=== PATIENT | female | born 1970 | race Two or more races ===

== ENCOUNTER 2024-05-13 06:16 | Inpatient (IN) | payer MEDICAID, OTHER ==
[~2024-05-13] VITALS: Ht 149.9 cm; Wt 96.4 kg
[2024-05-13 07:08] LABS: Basophils # (auto) 0 10 ^3/uL (0-0.2); Basophils % (auto) 0.5 % (0.0-2.0); Eosinophils # (auto) 0.1 10 ^3/uL (0-0.8); Eosinophils % (auto) 2.1 % (0.0-7.0); Hematocrit 37.8 % (36.0-46.0); Hemoglobin 12.5 g/dL (12.2-16.2); Lymphocytes # (auto) 1.4 10 ^3/uL (0.4-5.4); Lymphocytes % (auto) 22.4 % (10.0-50.0); Mean Corpuscular Hemoglobin 27.9 pg (28.0-32.0); Mean Corpuscular Hgb Conc. 33.1 g/dL (32.0-36.0); Mean Corpuscular Volume 84.4 fL (80.0-100.0); Monocytes # (auto) 0.4 10 ^3/uL (0-1.3); Monocytes % (auto) 7.3 % (0.0-12.0); Neutrophils # (auto) 4.1 10 ^3/uL (1.6-8.6); Neutrophils % (auto) 67.7 % (37.0-80.0); Nucleated Red Blood Cells % 0.1 %; Platelet Count (auto) 264 10^3/uL (140-450); Red Blood Cells 4.48 10^6/uL (4.0-5.20); Red Cell Distribution Width 17.5 % (11.8-14.3)
[2024-05-13 07:16] LABS: Chloride 112 mmol/L (98-107); Potassium 4.1 mmol/L (3.5-5.1); Sodium 141 mmol/L (136-145)
[2024-05-13 07:17] LABS: Anion Gap 7 (5-15); Calcium 9.7 mg/dL (8.7-10.4); Carbon Dioxide 22 mmol/L (20-31)
[2024-05-13 07:22] LABS: BUN/Creatinine Ratio 19.1 (10.0-20.0); Blood Urea Nitrogen 13 mg/dL (9-23); Glucose 106 mg/dL (74-106)
[2024-05-13 07:41] VITALS: PULSE 87; RESP 19; O2SAT 97
[2024-05-13] MEDS: NITROGLYCERIN 0.4 MG SL TAB SL ONE (07:49)
[2024-05-13] MEDS: ASPirin 325 MG TAB PO ONE (07:49)
[2024-05-13 08:08] LABS: Urine Bacteria None Seen /hpf (None Seen)
[2024-05-13 08:22] LABS: Urine Blood TRACE /uL (Negative); Urine Clarity Clear (Clear); Urine Color Light-Yellow (Yellow); Urine Protein, UAD Negative (Negative); Urine Specific Gravity 1.018 (1.001-1.035); Urine Urobilinogen Normal (Negative); Urine WBC 1 /hpf (0 - 5); Urine pH 5.5 (5.0-9.0)
[2024-05-13] MEDS ORDERED: MORPHINE SULFATE INJ 2 MG/ml SYRG IV PRN (11:00)
[2024-05-13] MEDS ORDERED: NITROGLYCERIN 0.4 MG SL TAB SL PRN (11:00)
[2024-05-13] MEDS ORDERED: ONDANSETRON HCL 4 MG/2 ML VIAL IV PRN (11:00)
[2024-05-13] MEDS ORDERED: ACETAMINOPHEN 325 MG TAB PO PRN (11:00)
[2024-05-13 12:40] LABS: Rapid Influenza A Negative (Negative); Rapid Influenza B Negative (Negative)
[2024-05-13 12:41] LABS: COVID19 ANTIGEN SOFIA FIA NEGATIVE (NEGATIVE)
[2024-05-13] MEDS ORDERED: LISI20TA56 PO (13:11)
[2024-05-13] MEDS ORDERED: TAMS0.4C39 PO (13:11)
[2024-05-13 13:19] VITALS: BP 128/64; PULSE 70; RESP 18; TEMP 97.7; O2SAT 96
[2024-05-13 18:41] LABS: Magnesium 2.1 mg/dL (1.6-2.6)
[2024-05-13 18:43] LABS: Phosphorus 3.8 mg/dL (2.4-5.1)
[2024-05-13 19:27] VITALS: O2SAT 95
[2024-05-13 22:00] VITALS: BP 102/41; PULSE 66; RESP 19; TEMP 97.6; O2SAT 100
[2024-05-13 22:43] VITALS: PULSE 68; RESP 22; O2SAT 94
[2024-05-13] MEDS: ALBUTEROL SULF 2.5 MG/0.5ML(0.5%) NEB SOLN NEB PRN (22:43)
[2024-05-13] MEDS: IPRATROPIUM BROM 0.5 MG/2.5ML INH SOL NEB PRN (22:43)
[2024-05-13 22:51] VITALS: PULSE 69; RESP 24; O2SAT 98
[2024-05-13] MEDS ORDERED: IBUPROFEN 600 MG TAB PO ONE (23:45)
[2024-05-14] VITALS (9 sets, daily range): BP systolic 107–151; BP diastolic 39–76; PULSE 61–88; RESP 17–20; TEMP 97.7–98.1; O2SAT 95–100
[2024-05-14 07:50] LABS: Basophils # (auto) 0 10 ^3/uL (0-0.2); Basophils % (auto) 0.3 % (0.0-2.0); Eosinophils # (auto) 0.1 10 ^3/uL (0-0.8); Eosinophils % (auto) 1.8 % (0.0-7.0); Hematocrit 35.7 % (36.0-46.0); Hemoglobin 11.8 g/dL (12.2-16.2); Lymphocytes # (auto) 1.5 10 ^3/uL (0.4-5.4); Lymphocytes % (auto) 26.5 % (10.0-50.0); Mean Corpuscular Hemoglobin 27.9 pg (28.0-32.0); Mean Corpuscular Volume 84.4 fL (80.0-100.0); Monocytes # (auto) 0.5 10 ^3/uL (0-1.3); Monocytes % (auto) 9.8 % (0.0-12.0); Neutrophils # (auto) 3.4 10 ^3/uL (1.6-8.6); Neutrophils % (auto) 61.6 % (37.0-80.0); Platelet Count (auto) 276 10^3/uL (140-450); Red Blood Cells 4.22 10^6/uL (4.0-5.20); Red Cell Distribution Width 17.6 % (11.8-14.3); White Blood Cell 5.6 10^3/uL (4.4-10.8)
[2024-05-14 08:08] LABS: Chloride 111 mmol/L (98-107); Sodium 143 mmol/L (136-145)
[2024-05-14 08:09] LABS: Anion Gap 6 (5-15); Calcium 9.8 mg/dL (8.7-10.4); Carbon Dioxide 26 mmol/L (20-31)
[2024-05-14 08:14] LABS: BUN/Creatinine Ratio 15.6 (10.0-20.0); Blood Urea Nitrogen 12 mg/dL (9-23); Glucose 99 mg/dL (74-106)
[2024-05-14 08:19] LABS: INR 1.02 (0.9-1.15); Partial Thromboplastin Time 24.9 SEC (24.5-34.5); Prothrombin Time 10.8 sec (9.3-11.8)
[2024-05-14 09:17] LABS: Amphetamine Screen, Urine Neg (NEGATIVE); Barbiturate Scree,Urine Neg (NEGATIVE); Benzodiazephine Screen, Urine Neg (NEGATIVE)
[2024-05-14 09:18] LABS: Cannabinoid Screen, Urine Neg (NEGATIVE); Cocaine Screen, Urine Neg (NEGATIVE); Opiate Scree,Urine Neg (NEGATIVE); Phencyclidine Screen, Urine Neg (NEGATIVE)
[2024-05-14] MEDS: TAMSULOSIN HYDROCHLORIDE 0.4 MG CAP PO SCH (10:27)
[2024-05-14] MEDS: LISINOPRIL 20 MG TAB PO SCH (10:34)
[2024-05-14] MEDS: ASPirin 81 mg TAB PO SCH (10:35)
[2024-05-14] MEDS: PANTOPRAZOLE 40 MG TAB PO ONE (11:03)
[2024-05-14] MEDS ORDERED: IPRATROPIUM BROM 0.5 MG/2.5ML INH SOL NEB SCH (12:00)
[2024-05-14] MEDS ORDERED: IPRIH INH (18:26)
[2024-05-14] MEDS ORDERED: CYCL-839 PO (18:26)
[2024-05-14] MEDS: COLCHICINE 0.6 MG CAP PO ONE (18:30)
[2024-05-14] MEDS ORDERED: ATORVASTATIN 20 MG TAB PO SCH (22:00)
[2024-05-15] MEDS ORDERED: PANTOPRAZOLE 40 MG TAB PO SCH (06:00)
[2024-05-15] MEDS ORDERED: COLCHICINE 0.6 MG CAP PO SCH (10:00)
== END 2024-05-14 20:56 | disposition home or self-care (01) | DRG 243 ==
LOC: EDBD 06:16 → ER 06:16 → TELE 10:57 → EDBD 10:57 → TELE-WESTW 21:20
PROVIDERS: ADMIT Registered Nurse General Practice; ATTEND Student in an Organized Health Care Education/Training Program
DX: K21.9 Gastro-esophageal reflux disease without esophagitis (principal); J45.901 Unspecified asthma with (acute) exacerbation; E66.01 Morbid (severe) obesity due to excess calories; J44.9 Chronic obstructive pulmonary disease, unspecified; I10 Essential (primary) hypertension; N20.0 Calculus of kidney; F41.9 Anxiety disorder, unspecified; R73.03 Prediabetes; G89.29 Other chronic pain; Z20.822 Contact with and (suspected) exposure to COVID-19; E78.5 Hyperlipidemia, unspecified; K42.9 Umbilical hernia without obstruction or gangrene; G47.33 Obstructive sleep apnea (adult) (pediatric); Z88.0 Allergy status to penicillin; Z90.710 Acquired absence of both cervix and uterus; Z68.41 Body mass index [BMI] 40.0-44.9, adult
CPT/HCPCS: 36415; 71045; 80048; 80061; 80307; 81001; 82306; 82607; 83036; 83735; 83880; 84100; 84443; 84484; 85025; 85610; 85730; 87426; 87804; 93005; 93306; 94640; 99291; G0378

== ENCOUNTER 2024-06-05 12:49 | Inpatient (IN) | payer MEDICAID ==
[~2024-06-05] VITALS: Ht 149.9 cm; Wt 101.2 kg
[~2024-06-05 12:49] MED LIST: CYCL-839 PO; IPRIH INH; LISI20TA56 PO; TAMS0.4C39 PO
--- NOTE | 2024-06-05 13:01 | ED.PDOC ---
HPI Comments 53 year old female CODY presents to the ED with chief complaint of dizziness and syncope. Patient reports that [facility] had [facility], following up with Dr. Huynh's clinic today. Patient relays that in her chair, she began to experience dizziness with associated 7/10 lower abdominal pain, headache, and chest pain. Patient states when she had attempted to get the hotel front office manager's attention regarding her concern, she slid down the wall of the office onto the floor, having a syncopal episode. Patient notes she had a previous hysterectomy a few months ago. Patient denies any N/V/D, SOB, fever, or chills. Time Seen by MD: 12:55 Reviewed Notes: Nurses Notes, Medications, Allergies Allergies: Coded Allergies: Diphenhydramine (Verified Allergy, Unknown, 05/14/24) Penicillins (Verified Allergy, Unknown, 05/13/24) Home Meds Active Scripts Cyclobenzaprine Hcl (Cyclobenzaprine Hcl) 10 Mg Tab, 10 MG PO QPM for 7 Days, #7 TAB Prov:CHAPO MCMAHAN MD 05/14/24 Ipratropium [place] Hfa (Atrovent Hfa) 17 Mcg Aer, 2 PUFF INH QID PRN, #12.9 GRAMS 0 Refills Prov:CHAPO MCMAHAN MD 05/14/24 Reported Medications Tamsulosin Hcl (Tamsulosin Hcl) 0.4 Mg Cap, 0.4 MG PO DAILY 05/13/24 Lisinopril (Lisinopril) 20 Mg Tab, 20 MG PO DAILY 05/13/24 Information Source: Patient, Emergency Med Personnel Mode of Arrival: EMS Severity: Moderate Timing: Hours Duration: Since onset Prehospital treatment: None Location: Substernal Radiation: No Radiation Quality: Aching Onset: At Rest Cardiac Risk Factors: None PE Risk Factors: None History of: None Past Medical History PAST MEDICAL HISTORY: Asthma, COPD, HTN Surgical History: Hysterectomy EDI ANALYST History: No Pertinent EDI ANALYST History Family History Family History: Reviewed,noncontributory to illness Social History Smoker: Unknown Alcohol: Unknown Drugs: Unknown Lives In: Home Constitutional: reports: weakness; denies: chills, diaphoresis, fatigue, fever, malaise, sweats, others EENTM: denies: blurred vision, double vision, ear bleeding, ear discharge, ear drainage, ear pain, ear ringing, eye pain, eye redness, hearing loss, mouth pain, mouth swelling, nasal discharge, nose bleeding, nose congestion, nose pain, photophobia, tearing, throat pain, throat swelling, voice changes, others Respiratory: denies: cough, hemoptysis, orthopnea, SOB at rest, shortness of breath, SOB with excertion, stridor, wheezing, others Cardiovascular: reports: chest pain; denies: dizzy spells, diaphoresis, Dyspnea on exertion, edema, irregular heart beat, left arm pain, lightheadedness, palpitations, PND, syncope, others Gastrointestinal: denies: abdomen distended, abdominal pain, blood streaked bowels, constipated, diarrhea, dysphagia, difficulty swallowing, hematemesis, melena, nausea, poor appetite, poor fluid intake, rectal bleeding, rectal pain, vomiting, others Genitourinary: denies: abnormal vagina bleeding, burning, dyspareunia, dysuria, flank pain, frequency, hematuria, incontinence, pain, , vagina discharge, urgency, others Neurological: reports: dizziness, headache; denies: fainting, left sided numbness, left sided weakness, numbness, paresthesia, pre-existing deficit, right sided numbness, right sided weakness, seizure, speech problems, tingling, tremors, weakness, others Musculoskeletal: denies: back pain, gout, joint pain, joint swelling, muscle pain, muscle stiffness, neck pain, others Integumetry: denies: bruises, change in color, change in hair/nails, dryness, laceration, lesions, lumps, rash, wounds, others Allergic/Immunocompromised: denies: Difficulty Healing, Frequent Infections, Hives, Itching, others Hematologic/Lymphatic: denies: anemia, blood clots, easy bleeding, easy bruising, swollen glands, others Endocrine: denies: excessive hunger, excessive sweating, excessive thirst, excessive urination, flushing, intolerance to cold, intolerance to heat, unexplained weight gain, unexplained weight loss, others Psychiatric: denies: anxiety, bipolar disorder, depression, hopeless, panic disorder, schizophrenia, sleepless, suicidal, others All Other Systems: Reviewed and Negative Physical Exam General Appearance: Moderate Distress, Normal HEENT: Normal ENT Inspection, PERRL/EOMI Neck: Full Range of Motion, Non-Tender, Normal, Normal Inspection Respiratory: Chest Non-Tender, Lungs Clear, No Accessory Muscle Use, No Respiratory Distress, Normal Breath Sounds Cardiovascular: No Edema, No JVD, No Murmur, No Gallop, Normal Peripheral Pulses, Regular Rate/Rhythm Breast Exam: Deferred Gastrointestinal: No Organomegaly, Non Tender, No Pulsatile Mass, Normal Bowel Sounds, Soft Genitalia: Deferred Pelvic: Deferred Rectal: Deferred Extremities: No calf tenderness, Normal capillary refill, Normal inspection, Normal range of motion, Non-tender, No pedal edema Musculoskeletal : Apperance: Normal Neurologic: Alert, woodworking belt sander II-XII nml as Tested, No Motor Deficits, Normal Affect, Normal Mood, No Sensory Deficits Cerebellar Function: NOT DONE Reflexes: NOT DONE Skin: Dry, Normal Color, Warm Peripheral Pulses: 3+ Radial (R), 3+ Radial (L) Lymphatic: No Adenopathy Was a procedure done? Was a procedure done?: No CP Differential Dx Differential Diagnosis: A-fib, A-Flutter, Angina, Anxiety / Panic Attack, Atrial Dysrhythmia, Electrolyte Disorder X-Ray, Labs, Meds, VS Patient alert. Complaining of chest pain. Came from urgent care. Vitals stable. Answering all questions. Reviewed her previous visit. EKG reviewed does not show any acute changes. Was given aspirin. Was given nitro. Explained to the patient. Time of 1ST Reevaluation: 13:55 Reevaluation 1ST: Unchanged Patient Education/Counseling: Diagnosis, Treatment Family Education/Counseling: No Family Present Departure 1 Departure Time of Disposition: 13:08 Impression: Primary Impression: Chest pain of unknown etiology Disposition: ADMITTED INPATIENT Admit to: Med Surg Condition: Guarded Critical Care Note Critical Care Time?: Yes (45 min-critical care time only) Stability Stability form required: No Heart Score Heart Score: Heart Score Response (Comments) Value History Moderate Suspicious 1 EKG Normal 0 Age 45-64 1 Risk Factors 1 or 2 risk factors 1 Troponin Normal limit 0 Total 3 I personally scribed for ARTURO ROD MD ([email or web address]) on 06/05/24 at 13:01. Electronically submitted by Topher Marshall ([email or web address]). ARTURO ROD MD Jun 05, 2024 13:01
[2024-06-05] MEDS: ASPirin 325 MG TAB PO ONE (13:15)
[2024-06-05 14:15] LABS: Basophils # (auto) 0 10 ^3/uL (0-0.2); Basophils % (auto) 0.4 % (0.0-2.0); Eosinophils # (auto) 0.1 10 ^3/uL (0-0.8); Eosinophils % (auto) 1.5 % (0.0-7.0); Hematocrit 39.6 % (36.0-46.0); Hemoglobin 13.3 g/dL (12.2-16.2); Lymphocytes # (auto) 1.8 10 ^3/uL (0.4-5.4); Lymphocytes % (auto) 22.7 % (10.0-50.0); Mean Corpuscular Hemoglobin 28.9 pg (28.0-32.0); Mean Corpuscular Hgb Conc. 33.6 g/dL (32.0-36.0); Mean Corpuscular Volume 85.9 fL (80.0-100.0); Monocytes # (auto) 0.7 10 ^3/uL (0-1.3); Neutrophils # (auto) 5.5 10 ^3/uL (1.6-8.6); Neutrophils % (auto) 67.4 % (37.0-80.0); Platelet Count (auto) 296 10^3/uL (140-450); Red Blood Cells 4.61 10^6/uL (4.0-5.20); Red Cell Distribution Width 17.3 % (11.8-14.3); White Blood Cell 8.1 10^3/uL (4.4-10.8)
[2024-06-05 14:31] LABS: Chloride 109 mmol/L (98-107); Potassium 4.4 mmol/L (3.5-5.1); Sodium 143 mmol/L (136-145)
[2024-06-05 14:32] LABS: Anion Gap 7 (5-15); Calcium 10.6 mg/dL (8.7-10.4); Carbon Dioxide 27 mmol/L (20-31)
[2024-06-05 14:37] LABS: BUN/Creatinine Ratio 21.4 (10.0-20.0); Blood Urea Nitrogen 15 mg/dL (9-23); Glucose 97 mg/dL (74-106)
--- NOTE | 2024-06-05 18:49 | ECG ---
[facility] Test Date: 2024-06-05 Test Time: 13:04:31 Pat Name: MELISSA CHRISTIANSON Department: ER Room: 024[facility] Gender: F Manager Operational: ABDELRAHMAN : 1970 Requested By: ARTURO ROD Order Number: [id number] Reading MD: Vasyl Perez Measurements Intervals Gladys Rate: 58 P: 40 MD: 169 QRS: 65 QRSD: 86 T: 53 QT: 389 QTc: 383 Interpretive Statements Sinus rhythm Electronically Signed On 06-13-2024 13:05:38 PST by Vasyl Perez Please click the below link to view image of tracing.
[2024-06-05] MEDS ORDERED: NITROGLYCERIN 0.4 MG SL TAB SL PRN (21:00)
[2024-06-05] MEDS ORDERED: MORPHINE SULFATE INJ 2 MG/ml SYRG IV PRN (21:00)
[2024-06-05] MEDS ORDERED: ONDANSETRON HCL 4 MG/2 ML VIAL IV PRN (21:00)
[2024-06-05] MEDS: NITROGLYCERIN 0.4 MG SL TAB SL ONE (21:28)
--- NOTE | 2024-06-05 22:25 | DVHHPRES ---
History of Present Illness Resident Creating Document: STEPHANIE JANSEN RESIDENT History of Present Illness This is a 53-year-old female with past medical history of hypertension, hyperlipidemia, kidney stone, asthma, COPD presented to the ED with a chief complaint of dizziness and near syncopal event prior to this admission. A ccording to the patient she had recently been discharged from the [facility] for syncopal episodes. She went to her PCP today and when she was on her scooter she started feeling dizzy with lower abdominal pain which was colicky in nature, 7/10, localized and headache and chest pain. Also mentioned when she had attempted to get to the front attendant regarding her concern she slide down the wall of the office onto the floor but did not lose consciousness. She denies diaphoresis, nausea, vomiting, dysuria, sick contact, recent traveling, fever, chills or any change in bowel habit . Past Medical History Hypertension, hyperlipidemia, asthma, COPD Past Surgical History , hysterectomy and appendectomy Family History Family history is significant for heart disease and type 2 diabetes mellitus Past Social History Nonsmoker, nonalcoholic and never tried any drugs Review of Systems Constitutional: No: Fever, Chills, Sweats, Weakness, Malaise, Other Eyes: No: Pain, Vision change, Conjunctivae inflammation, Eyelid inflammation, Other, Redness ENT: No: Ear pain, Ear discharge, Nose pain, Nose discharge, Nose congestion, Mouth pain, Mouth swelling, Throat pain, Throat swelling, Other Respiratory: No: Cough, Dry, Shortness of breath, SOB with excertion, Wheezing, Hemoptysis, Pleuritic Pain, Sputum, Wheezing, Other Cardiovascular: Chest Pain, Lt Headedness Gastrointestinal: Abdominal Pain; No: Nausea, Vomiting, Diarrhea, Constipation, Melena, Hematochezia, Other Genitourinary: No Dysuria, No Frequency, No Incontinence, No Hematuria, No Retention, No Other Musculoskeletal: No: other, neck pain, shoulder pain, arm pain, back pain, hand pain, leg pain, foot pain Skin: No: Rash, Lesions, Jaundice, Bruising, Other Neurological: No: Weakness, Numbness, Incoordination, Change in speech, Confusion, Seizures, Other Allergies: Coded Allergies: Diphenhydramine (Verified Allergy, Unknown, 05/14/24) Penicillins (Verified Allergy, Unknown, 05/13/24) Medications Current Medications Medications Dose Ordered Sig/Neda Route Start Time Stop Time Status Last Admin Dose Admin Sodium Chloride 10 ml Q8HR IV 06/05/24 22:00 Acetaminophen/ Hydrocodone Bitart 1 tab Q4HP PRN PO 06/05/24 21:00 Ondansetron HCl 4 mg Q4HP PRN IV 06/05/24 21:00 Nitroglycerin 0.4 mg Q5MINP PRN SL 06/05/24 21:00 Morphine Sulfate 2 mg Q30M PRN IV 06/05/24 21:00 Sodium Chloride 1,000 ml @ 75 mls/hr [id number] IV 06/05/24 22:15 Exam Vital Signs Vital Signs Date Time Temp Pulse Resp B/P (MAP) Pulse Ox O2 Delivery O2 Flow Rate FiO2 06/05/24 21:01 98.7 82 18 120/70 (87) 98 98.7 Exam Physical examination: General Appearance: Alert, Oriented X3, Cooperative, No acute distress HEENT: Atraumatic, PERRLA, EOMI, Mucous membrane moist/pink Respiratory: Clear to auscultation, Normal air movement Cardiovascular: Regular rate, Normal S1, Normal S2, No murmurs, no chest wall tenderness Abdominal: Normal bowel sounds, Soft, mild tenderness in the lower abdomen, No hepatospenomegaly, No masses Extremities: No clubbing, No cyanosis, No edema, Normal pulses, No tenderness/swelling Skin: No rashes, No breakdown, No significant lesion Neuro: Normal gait, Normal speech, Strength at 5/5 X4 ext, Normal tone, Sensation intact, grossly intact cranial nerves Psych/Mental Status: Mental status NL, Mood NL Labs/Xrays Labs Test 06/05/24 14:01 Range/Units White Blood Count 8.1 4.4-10.8 10^3/uL Red Blood Count 4.61 4.0-5.20 10^6/uL Hemoglobin 13.3 12.2-16.2 g/dL Hematocrit 39.6 36.0-46.0 % Mean Corpuscular Volume 85.9 80.0-100.0 fL Mean Corpuscular Hemoglobin 28.9 28.0-32.0 pg Mean Corpuscular Hemoglobin Concent 33.6 32.0-36.0 g/dL Red Cell Distribution Width 17.3 H 11.8-14.3 % Platelet Count 296 140-450 10^3/uL Mean Platelet Volume 7.5 6.9-10.8 fL Neutrophils (%) (Auto) 67.4 37.0-80.0 % Lymphocytes (%) (Auto) 22.7 10.0-50.0 % Monocytes (%) (Auto) 8.0 0.0-12.0 % Eosinophils (%) (Auto) 1.5 0.0-7.0 % Basophils (%) (Auto) 0.4 0.0-2.0 % Neutrophils # (Auto) 5.5 1.6-8.6 10 ^3/uL Lymphocytes # (Auto) 1.8 0.4-5.4 10 ^3/uL Monocytes # (Auto) 0.7 0-1.3 10 ^3/uL Eosinophils # (Auto) 0.1 0-0.8 10 ^3/uL Basophils # (Auto) 0 0-0.2 10 ^3/uL Nucleated Red Blood Cells 0.0 % Sodium Level 143 136-145 mmol/L Potassium Level 4.4 3.5-5.1 mmol/L Chloride Level 109 H 98-107 mmol/L Carbon Dioxide Level 27 20-31 mmol/L Anion Gap 7 5-15 Blood Urea Nitrogen 15 9-23 mg/dL Creatinine 0.70 0.550-1.02 mg/dL Glomerular Filtration Rate Calc 105 >90 mL/min BUN/Creatinine Ratio 21.4 H 10.0-20.0 Serum Glucose 97 74-106 mg/dL Calcium Level 10.6 H 8.7-10.4 mg/dL Troponin I High Sensitivity < 3 L </=34 ng/L Assessment/Plan Assessment/Plan Assessment and plan: # Dizziness likely secondary to dehydration - Initial EKG and troponins are unremarkable - Ordered orthostatic vital - IV normal saline at 75 mL/hour - Encourage oral fluid intake - Echo on 05/14/24 revealed EF 55% with grade 1 diastolic dysfunction # Hypercalcemia likely due to dehydration - IV normal saline at 75 mL/hour Goal of care discussed with the patient for more than 17 minutes full code Plan of treatment discussed with Dr. Gonzalez Plan discussed with: Patient, Other My Orders Orders - STEPHANIE JANSEN RESIDENT Procedure Category Date Status Time Admit ADMIT 11/13/24 Transmitted 20:51 Code Status CODE 06/05/24 Transmitted 20:51 2 Gm Sodium Diet DIET 06/06/24 Transmitted Breakfast Sodium Chloride Lock PHA 06/05/24 In Process (Saline Lock Ns) 22:00 Hydrocodone-Acet PHA 06/05/24 In Process 5/325mg Tab ([place] 21:00 Ondansetron Hcl PHA 06/05/24 In Process (Zofran) 21:00 Complete Blood Count LAB 06/06/24 Verified 04:00 Comprehensive LAB 06/06/24 Verified Metabolic Panel 04:00 Nitroglycerin PHA 06/05/24 In Process Sublingual (Ntrostat 21:00 Morphine Sulfate PHA 06/05/24 In Process Injection 21:00 Oxygen By Nasal RT 06/05/24 Transmitted Cannula 20:51 Stat Ekg For Chest MAX 06/05/24 In Process Pain 20:51 Notify Of Changes MAX 06/05/24 In Process From Base 20:51 Baseball Winder For [facility] 06/05/24 In Process 24 Hours 20:51 Emergency Dysrhythmia [facility] 06/05/24 In Process Protocol 20:51 Rhythm Strips Once [facility] 06/05/24 In Process Every Shift 20:51 Chest Portable XY 06/05/24 Taken 22:03 Orthostatic Vital ORDERS 06/05/24 Transmitted Signs 22:03 Sodium Chloride 0.9% PHA 06/05/24 In Process 22:15 B-Type Natriuretic LAB 06/05/24 In Process Peptide 22:03 Urinalysis LAB 06/05/24 Uncollected 22:03 Date of Service: Jun 05, 2024 Billing Provider: PATRICIA GONZALEZ MD Common Visit Codes: [id number] INP/OBS CARE (HIGH) STEPHANIE JANSEN RESIDENT Jun 05, 2024 22:25 PATRICIA GONZALEZ MD Jun 06, 2024 13:41
--- NOTE | 2024-06-05 22:34 | DVH ---
CHEST RADIOGRAPH Indication:Chest pain Technique: Single frontal view of the chest was obtained Comparison: XY CHEST PORTABLE on DOS: 05/13/24 FINDINGS: Lines and Tubes: None Lungs: No focal consolidation. Pleura: No effusion. No pneumothorax. Cardiomediastinal contours: Unremarkable Bones: No acute osseous abnormality. IMPRESSION: 1. No active disease
[2024-06-06] MEDS: SODIUM CHLORIDE 0.9% 1,000 ML IV SCH (00:27)
[2024-06-06] MEDS: SODIUM CHLOR 0.9% PF (SALINE LOCK) 10ML VIAL/SYR IV SCH (00:27)
[2024-06-06 00:28] VITALS: PULSE 78; RESP 16; O2SAT 98
[2024-06-06 05:56] LABS: Basophils # (auto) 0 10 ^3/uL (0-0.2); Basophils % (auto) 0.5 % (0.0-2.0); Eosinophils # (auto) 0.1 10 ^3/uL (0-0.8); Eosinophils % (auto) 1.9 % (0.0-7.0); Hematocrit 41.4 % (36.0-46.0); Hemoglobin 13.5 g/dL (12.2-16.2); Mean Corpuscular Hgb Conc. 32.5 g/dL (32.0-36.0); Monocytes # (auto) 0.6 10 ^3/uL (0-1.3); Monocytes % (auto) 8.1 % (0.0-12.0); Neutrophils # (auto) 4.6 10 ^3/uL (1.6-8.6); Neutrophils % (auto) 62.5 % (37.0-80.0); Nucleated Red Blood Cells % 0.2 %; Platelet Count (auto) 313 10^3/uL (140-450); Red Blood Cells 4.81 10^6/uL (4.0-5.20); Red Cell Distribution Width 17.3 % (11.8-14.3); White Blood Cell 7.3 10^3/uL (4.4-10.8)
[2024-06-06 06:09] LABS: Alanine Aminotransferase 12 U/L (7-40); Alkaline Phosphatase 110 U/L (46-116); Anion Gap 11 (5-15); BUN/Creatinine Ratio 16.7 (10.0-20.0); Blood Urea Nitrogen 12 mg/dL (9-23); Calcium 10.6 mg/dL (8.7-10.4); Carbon Dioxide 23 mmol/L (20-31); Chloride 108 mmol/L (98-107); Glucose 103 mg/dL (74-106); Potassium 3.9 mmol/L (3.5-5.1); Sodium 142 mmol/L (136-145)
[2024-06-06 06:10] LABS: Albumin 4.6 g/dL (3.2-4.8); Aspartate Aminotransferase 11 U/L (13-40); Bilirubin, Total 0.5 mg/dL (0.2-1.0); Total Protein 7.8 g/dL (5.7-8.2)
[2024-06-06 06:58] LABS: Urine Bacteria None Seen /hpf (None Seen)
[2024-06-06 07:00] VITALS: RESP 16; O2SAT 98
[2024-06-06] MEDS: HYDROcodone-ACET 5/325MG TAB PO PRN (07:05)
[2024-06-06 07:35] LABS: Urine Blood Negative /uL (Negative); Urine Clarity Clear (Clear); Urine Color Light-Yellow (Yellow); Urine Mucus FEW (None Seen); Urine Protein, UAD Negative (Negative); Urine Specific Gravity 1.019 (1.001-1.035); Urine Urobilinogen Normal (Negative); Urine WBC 4 /hpf (0 - 5)
[2024-06-06 08:00] VITALS: RESP 16; O2SAT 98
[2024-06-06 22:13] VITALS: BP 112/57; PULSE 77; RESP 18; TEMP 97.6; O2SAT 95
[2024-06-07] VITALS (16 sets, daily range): BP systolic 113–142; BP diastolic 50–83; PULSE 58–85; RESP 16–20; TEMP 96.8–98.7; O2SAT 91–100
[2024-06-07] MEDS: ALBUTEROL SULF 2.5 MG/0.5ML(0.5%) NEB SOLN NEB PRN (12:11)
[2024-06-07] MEDS: IPRATROPIUM BROM 0.5 MG/2.5ML INH SOL NEB PRN (12:12)
--- NOTE | 2024-06-07 12:52 | BSKYNEURO ---
[facility] Note # Demographics Consult Type: General Neurology Patient Location: Inpatient First Name: Moira Last Name: Zuñiga Date of : 1970 Age: 53 Gender: Female Facility: [facility] Time of Initial Page (): 06/07/2024, 12:36 Time of Return Call (): 06/07/2024, 12:36 # HPI Chief Complaint: - dizziness History: 53F with history of syncope/presyncope, HTN, GERD presents with dizziness and concern for recurrent UTI. Orthostatic vital signs unremarkable. Dizziness has not completed resolved, worse with movement. Dizziness has been a problem since a traumatic brain injury several years ago. # Scores Time of exam and NIHSS (): 06/07/2024, 12:45 Level of Consciousness 1a: [0] = Alert; keenly responsive LOC Questions 1b: [0] = Answers both questions correctly LOC Commands 1c: [0] = Performs both tasks correctly Best Gaze 2: [0] = Normal Visual 3: [0] = No visual loss Facial Palsy 4: [0] = Normal symmetrical movements Motor Arm Left 5a: [0] = No drift Motor Arm Right 5b: [0] = No drift Motor Leg Left 6a: [0] = No drift Motor Leg Right 6b: [0] = No drift Limb Ataxia 7: [0] = Absent Sensory 8: [0] = Normal Best Language 9: [0] = No aphasia Dysarthria 10: [0] = Normal Extinction and Inattention 11: [0] = No abnormality NIHSS Total: 0 # Assessment Impression: 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 Possible acute exacerbation in setting of UTI # Plan Thrombolytic/Intervention: NOT IV Thrombolysis or IA Intervention candidate Thrombolytic/Intraarterial Exclusion: - IV thrombolytic and IA intervention considered but not recommended as this patient's symptoms are not clinically consistent with an assumed diagnosis of stroke Therapy/Evaluation: - PT/OT evaluation Other: - If patient has any neurological deterioration please call me back immediately - neurology referral as outpatient Additional Recommendations: If walking at her baseline, OK for discharge from neurology perspective Disposition: observation # Logistics Attestation of consult completion: The patient is located at: [facility]. Facility staff participated in the visit. I performed this telemedicine visit from my offsite office utilizing interactive 2 way audio and visual telecommunication technology. Consent: Verbal consent was obtained from the patient and/or family for this encounter. Total time spent in telemedicine encounter: I spent 10 minutes reviewing clinical data and/or imaging, obtaining history, examining the patient, communicating with the onsite care team, and in preparation of this report. Electronically signed at 06/07/2024 12:52 ([place] Time) by Braeden Xiong MD Yes BRAEDEN XIONG MD Jun 07, 2024 12:52
[2024-06-07 13:11] LABS: Urine Bacteria None Seen /hpf (None Seen)
[2024-06-07 13:36] LABS: Urine Blood Negative /uL (Negative); Urine Clarity Clear (Clear); Urine Color Light-Yellow (Yellow); Urine Protein, UAD Negative (Negative); Urine Specific Gravity 1.013 (1.001-1.035); Urine Urobilinogen Normal (Negative); Urine WBC 1 /hpf (0 - 5)
--- NOTE | 2024-06-07 15:21 | DVHPN2 ---
Reviewed: Care Plan, H&P, Labs, Medications, Previous Orders Changes from previous H/P or p: No Changes General: Per HPI Eyes: No Pain, No Vision change, No Conjunctivae inflammation, No Eyelid inflammation, No Other, No Redness ENT: No Ear pain, No Ear discharge, No Nose pain, No Nose discharge, No Nose congestion, No Mouth pain, No Mouth swelling, No Throat pain, No Throat swelling, No Other Cardiovascular: Chest Pain, Lt Headedness Respiratory: No Cough, No Dry, No Shortness of breath, No SOB with excertion, No Wheezing, No Hemoptysis, No Pleuritic Pain, No Sputum, No Other Gastrointestinal: No Nausea, No Vomiting; Abdominal Pain; No Diarrhea, No Constipation, No Melena, No Hematochezia, No Other Genitourinary: No Dysuria, No Frequency, No Incontinence, No Hematuria, No Retention, No Other Musculoskeletal: No other, No neck pain, No shoulder pain, No arm pain, No back pain, No hand pain, No leg pain, No foot pain Skin: No Rash, No Lesions, No Jaundice, No Bruising, No Other Objective Vitals Vital Signs Date Time Temp Pulse Resp B/P (MAP) Pulse Ox O2 Delivery O2 Flow Rate FiO2 06/07/24 13:31 85 20 91 0.0 06/07/24 12:30 98.1 114/66 (82) 98.1 06/07/24 12:12 Room Air 06/07/24 12:12 21 Intake/Output Intake and Output 06/07/24 07:00 Intake Total 800 ml Balance 800 ml Intake Oral 200 ml IV Total 600 ml # Voids 1 General Appearance: Alert, Oriented X3 Cardiovascular: Regular rate, Normal S1, Normal S2 Abdomen: Normal bowel sounds Medications Current Medications Medications Dose Ordered Sig/Neda Route Start Time Stop Time Status Last Admin Dose Admin Sodium Chloride 10 ml Q8HR IV 06/05/24 22:00 06/07/24 14:19 10 ML Acetaminophen/ Hydrocodone Bitart 1 tab Q4HP PRN PO 06/05/24 21:00 06/07/24 11:03 1 TAB Ondansetron HCl 4 mg Q4HP PRN IV 06/05/24 21:00 Nitroglycerin 0.4 mg Q5MINP PRN SL 06/05/24 21:00 Morphine Sulfate 2 mg Q30M PRN IV 06/05/24 21:00 Sodium Chloride 1,000 ml @ 75 mls/hr [id number] IV 06/05/24 22:15 06/07/24 14:19 75 MLS/HR Ipratropium [place] 0.5 mg Q4HP PRN NEB 06/07/24 11:45 06/07/24 12:12 0.5 MG Albuterol 2.5 mg Q4HPRN PRN NEB 06/07/24 11:45 06/07/24 12:11 2.5 MG Laboratory Results Laboratory Tests 06/06/24 05:25 Urinalysis Test 06/06/24 06:57 06/07/24 12:45 Urine Mucus Few (None Seen) Urine Color Light-yellow (Yellow) Urine Clarity Clear (Clear) Urine pH 5.0 (5.0-9.0) Urine Specific [place] 1.013 (1.001-1.035) Urine Protein Negative (Negative) Urine Ketones Negative (Negative) Urine Blood Negative /uL (Negative) Urine Nitrite Negative (Negative) Urine Bilirubin Negative (Negative) Urine Urobilinogen Normal mg/dL (Negative) Urine Leukocyte Esterase Negative /uL (Negative) Urine RBC <1 /hpf (0 - 4) Urine WBC 1 /hpf (0 - 5) Urine Squamous Epithelial Cells Few /hpf (<5) Urine Bacteria None seen /hpf (None Seen) Urine Glucose Normal mg/dL (Normal) Labs and/or images reviewed: Labs reviewed by me, Image(s) reviewed by me Assessment/Plan Assessment/Plan This is a 53-year-old female with past medical history of hypertension, hyperlipidemia, kidney stone, asthma, COPD presented to the ED with a chief complaint of dizziness and near syncopal event prior to this admission. According to the patient she had recently been discharged from the [facility] for syncopal episodes. She went to her PCP today and when she was on her scooter she started feeling dizzy with lower abdominal pain which was colicky in nature, 7/10, localized and headache and chest pain. Also mentioned when she had attempted to get to the front maker lockstitch regarding her concern she slide down the wall of the office onto the floor but did not lose consciousness. She denies diaphoresis, nausea, vomiting, dysuria, sick contact, recent traveling, fever, chills or any change in bowel habit . # Dizziness likely secondary to dehydration - Initial EKG and troponins are unremarkable - Ordered orthostatic vital - IV normal saline at 75 mL/hour - Encourage oral fluid intake - Echo on 05/14/24 revealed EF 55% with grade 1 diastolic dysfunction # Hypercalcemia likely due to dehydration - IV normal saline at 75 mL/hour continue with hydration cardiology to complete full evaluation prior to discharge Plan discussed with: Patient My Orders Orders - HARISH KING DO Procedure Category Date Status Time * Neurology Consult CONS 06/06/24 Transmitted 16:12 Ipratropium [place] PHA 06/07/24 In Process (Atrovent Medneb) 11:45 Albuterol Med[place] PHA 06/07/24 In Process (Ventolin Medneb) 11:45 Date of Service: Jun 07, 2024 Billing Provider: HARISH IKNG DO Common Visit Codes: [id number] INP/OBS CARE(HIGH) HARISH KING DO Jun 07, 2024 15:21
--- NOTE | 2024-06-07 17:17 | DVH ---
PROCEDURE: MRI BRAIN HEAD WO CONTRAST INDICATION: 53 years old, Female; dizziness. EXAM DATE: 06/07/2024 03:57 PM COMPARISON: None TECHNIQUE: MRI of the brain without intravenous contrast. FINDINGS: Diffusion weighted images of the brain demonstrate no evidence of acute infarction. There is no evidence of acute intracranial hemorrhage, extra-axial collection, mass effect, midline s hift, herniation or hydrocephalus. The ventricles, sulci and cisterns appear age appropriate. The signal intensities of the brain parenchyma are within normal limits. There are no signal abnormalities on the susceptibility weighted sequences. The major vascular flow voids are present. The visualized paranasal sinuses and mastoid air cells are clear. The surrounding soft tissues and o sseous structures are unremarkable. IMPRESSION: 1. Limited by motion. FLAIR images were not submitted. No acute intracranial abnormality. HS:Y
[2024-06-08] VITALS (9 sets, daily range): BP systolic 122–141; BP diastolic 44–64; PULSE 56–87; RESP 17–20; TEMP 96.7–98.1; O2SAT 93–100
--- NOTE | 2024-06-08 15:48 | DVHDS2 ---
Discharge Summary Date of Admission Jun 05, 2024 at 20:51 Date of Discharge: Jun 08, 2024 Labs/Diagnostic Data: Laboratory Results Test 06/07/24 12:45 06/06/24 06:57 06/06/24 05:25 06/05/24 14:01 Urine Color Light-yellow (Yellow) Urine Clarity Clear (Clear) Urine pH 5.0 (5.0-9.0) Urine Specific [place] 1.013 (1.001-1.035) Urine Protein Negative (Negative) Urine Ketones Negative (Negative) Urine Blood Negative /uL (Negative) Urine Nitrite Negative (Negative) Urine Bilirubin Negative (Negative) Urine Urobilinogen Normal mg/dL (Negative) Urine Leukocyte Esterase Negative /uL (Negative) Urine RBC <1 /hpf (0 - 4) Urine WBC 1 /hpf (0 - 5) Urine Squamous Epithelial Cells Few /hpf (<5) Urine Bacteria None seen /hpf (None Seen) Urine Glucose Normal mg/dL (Normal) Urine Mucus Few (None Seen) White Blood Count 7.3 10^3/uL (4.4-10.8) Red Blood Count 4.81 10^6/uL (4.0-5.20) Hemoglobin 13.5 g/dL (12.2-16.2) Hematocrit 41.4 % (36.0-46.0) Mean Corpuscular Volume 86.0 fL (80.0-100.0) Mean Corpuscular Hemoglobin 28.0 pg (28.0-32.0) Mean Corpuscular Hemoglobin Concent 32.5 g/dL (32.0-36.0) Red Cell Distribution Width 17.3 % (11.8-14.3) Platelet Count 313 10^3/uL (140-450) Mean Platelet Volume 7.7 fL (6.9-10.8) Neutrophils (%) (Auto) 62.5 % (37.0-80.0) Lymphocytes (%) (Auto) 27.0 % (10.0-50.0) Monocytes (%) (Auto) 8.1 % (0.0-12.0) Eosinophils (%) (Auto) 1.9 % (0.0-7.0) Basophils (%) (Auto) 0.5 % (0.0-2.0) Neutrophils # (Auto) 4.6 10 ^3/uL (1.6-8.6) Lymphocytes # (Auto) 2.0 10 ^3/uL (0.4-5.4) Monocytes # (Auto) 0.6 10 ^3/uL (0-1.3) Eosinophils # (Auto) 0.1 10 ^3/uL (0-0.8) Basophils # (Auto) 0 10 ^3/uL (0-0.2) Nucleated Red Blood Cells 0.2 % Sodium Level 142 mmol/L (136-145) Potassium Level 3.9 mmol/L (3.5-5.1) Chloride Level 108 mmol/L (98-107) Carbon Dioxide Level 23 mmol/L (20-31) Anion Gap 11 (5-15) Blood Urea Nitrogen 12 mg/dL (9-23) Creatinine 0.72 mg/dL (0.550-1.02) Glomerular Filtration Rate Calc 101 mL/min (>90) BUN/Creatinine Ratio 16.7 (10.0-20.0) Serum Glucose 103 mg/dL (74-106) Calcium Level 10.6 mg/dL (8.7-10.4) Total Bilirubin 0.5 mg/dL (0.2-1.0) Aspartate Amino Transferase (AST) 11 U/L (13-40) Alanine Aminotransferase (ALT) 12 U/L (7-40) Alkaline Phosphatase 110 U/L (46-116) Total Protein 7.8 g/dL (5.7-8.2) Albumin 4.6 g/dL (3.2-4.8) Troponin I High Sensitivity < 3 ng/L (</=34) B-Type Natriuretic Peptide 22.00 pg/mL (0-100) Other Laboratory Tests 06/06/24 05:25 Brief Hx & Hospital Course: This is a 53-year-old female with past medical history of hypertension, hyperlipidemia, kidney stone, asthma, COPD presented to the ED with a chief complaint of dizziness and near syncopal event prior to this admission. According to the patient she had recently been discharged from the [facility] for syncopal episodes. She went to her PCP today and when she was on her scooter she started feeling dizzy with lower abdominal pain which was colicky in nature, 7/10, localized and headache and chest pain. Also mentioned when she had attempted to get to the front counter clerk regarding her concern she slide down the wall of the office onto the floor but did not lose consciousness. She denies diaphoresis, nausea, vomiting, dysuria, sick contact, recent traveling, fever, chills or any change in bowel habit . # Dizziness likely secondary to dehydration - Initial EKG and troponins are unremarkable - Ordered orthostatic vital - IV normal saline at 75 mL/hour - Encourage oral fluid intake - Echo on 05/14/24 revealed EF 55% with grade 1 diastolic dysfunction # Hypercalcemia likely due to dehydration - IV normal saline at 75 mL/hour continue with hydration cardiology to complete full evaluation prior to discharge Condition at Discharge: Stable Final Diagnosis/Problems List see above Discharge Disposition: Home Discharge Instruct/Medications Diet: Cardiac 2g Na,low cholest Activity: No Restrictions, As Tolerated Discharge Statement: "Patient was advised to return to the ER or call 911 if any headaches, dizziness, shortness of breath, chest pain, abdominal pain, bleeding, fevers, or worsening of medical condition. Patient was counseled about treatment plan, medications, possible side effects, patientverbalized understanding. All questions were answered to the best of my ability. This discharge took greater then 30 minutes in planning, reviewing documentation, counseling the patient, and discussing with other team members." ASSESSMENT ASSESSMENT Assessment Date of Service: Jun 08, 2024 Billing Provider: HARISH KING DO Common Visit Codes: 74009-VND/OBS DISCH DAY >30min HARISH KING DO Jun 08, 2024 15:48
== END 2024-06-08 19:57 | disposition home or self-care (01) | DRG 422 ==
LOC: EDUNIT# 12:49 → EDBD 12:49 → ER 12:49 → OVERFLOW 20:51 → EAST 06-06 23:33
PROVIDERS: ATTEND Internal Medicine
DX: E86.0 Dehydration (principal); E78.5 Hyperlipidemia, unspecified; R42 Dizziness and giddiness; E83.52 Hypercalcemia; R07.9 Chest pain, unspecified; I10 Essential (primary) hypertension; Z88.0 Allergy status to penicillin; Z87.442 Personal history of urinary calculi; Z82.49 Family history of ischemic heart disease and other diseases of the circulatory system; Z83.3 Family history of diabetes mellitus; Z90.710 Acquired absence of both cervix and uterus; Z90.49 Acquired absence of other specified parts of digestive tract; J44.9 Chronic obstructive pulmonary disease, unspecified
CPT/HCPCS: 36415; 70551; 71045; 80048; 80053; 81001; 83880; 84484; 85025; 93005; 94640; 99291; G0378

== ENCOUNTER 2024-06-15 00:24 | Emergency (ER) | payer MEDICAID ==
[~2024-06-15] VITALS: Ht 165.1 cm; Wt 81.8 kg
[~2024-06-15 00:24] MED LIST changes: -TAMS0.4C39 PO
--- NOTE | 2024-06-15 00:40 | ED.PDOC ---
SOB-HPI HPI Comments 53 Year old female who came to ER via EMS for shortness of breath. Patient does have history of hypertension and asthma. Patient states she has chronic asthmatic attacks, has been having productive cough with grayish sputum and shortness of breath earlier which progressively worsened so she decided to call paramedics. Patient was wheezing on scene, was given a dose of DuoNeb. Patient is saturating 100% on room air. Chief Complaint: Shortness of breath Time Seen by MD: 00:39 Reviewed notes: Nurses Notes, Second Cook And Baker Notes Information Source: Patient Mode of Arrival: EMS Severity: Moderate Timing: Hours Duration: Since onset Context: At Rest, With Light Exertion PE Risk Factors: None History of: Asthma Prehospital treatment: Breathing Tx, Oxygen Associated Signs and Symptoms: Wheeze, Cough If cough with SOB: Productive Past Medical History PAST MEDICAL HISTORY: Asthma, COPD, HTN Surgical History: Hysterectomy STRAPPER AND BUFFER History: No Pertinent STRAPPER AND BUFFER History Family History Family History: Reviewed,noncontributory to illness Social History Smoker: Non-Smoker Alcohol: Denies ETOH Use Drugs: Denies Drug Use Lives In: Home Constitutional: denies: chills, diaphoresis, fatigue, fever, malaise, sweats, weakness, others EENTM: denies: blurred vision, double vision, ear bleeding, ear discharge, ear drainage, ear pain, ear ringing, eye pain, eye redness, hearing loss, mouth pain, mouth swelling, nasal discharge, nose bleeding, nose congestion, nose pain, photophobia, tearing, throat pain, throat swelling, voice changes, others Respiratory: reports: cough, SOB at rest, shortness of breath, wheezing; denies: hemoptysis, orthopnea, SOB with excertion, stridor, others Cardiovascular: denies: chest pain, dizzy spells, diaphoresis, Dyspnea on exertion, edema, irregular heart beat, left arm pain, lightheadedness, palpitations, PND, syncope, others Gastrointestinal: denies: abdomen distended, abdominal pain, blood streaked bowels, constipated, diarrhea, dysphagia, difficulty swallowing, hematemesis, melena, nausea, poor appetite, poor fluid intake, rectal bleeding, rectal pain, vomiting, others Genitourinary: denies: abnormal vagina bleeding, burning, dyspareunia, dysuria, flank pain, frequency, hematuria, incontinence, pain, , vagina discharge, urgency, others Neurological: denies: dizziness, fainting, headache, left sided numbness, left sided weakness, numbness, paresthesia, pre-existing deficit, right sided numbness, right sided weakness, seizure, speech problems, tingling, tremors, weakness, others Musculoskeletal: denies: back pain, gout, joint pain, joint swelling, muscle pain, muscle stiffness, neck pain, others Integumetry: denies: bruises, change in color, change in hair/nails, dryness, laceration, lesions, lumps, rash, wounds, others Allergic/Immunocompromised: denies: Difficulty Healing, Frequent Infections, Hives, Itching, others Hematologic/Lymphatic: denies: anemia, blood clots, easy bleeding, easy bruising, swollen glands, others Endocrine: denies: excessive hunger, excessive sweating, excessive thirst, excessive urination, flushing, intolerance to cold, intolerance to heat, unexplained weight gain, unexplained weight loss, others Psychiatric: denies: anxiety, bipolar disorder, depression, hopeless, panic disorder, schizophrenia, sleepless, suicidal, others Physical Exam General Appearance: No Apparent Distress, Normal HEENT: Normal ENT Inspection, Pharynx Normal, TMs Normal Neck: Full Range of Motion, Non-Tender, Normal, Normal Inspection Respiratory: Chest Non-Tender, Lungs Clear, No Accessory Muscle Use, No Respiratory Distress, Normal Breath Sounds Cardiovascular: No Edema, No JVD, No Murmur, No Gallop, Normal Peripheral Pulses, Regular Rate/Rhythm Breast Exam: Deferred Gastrointestinal: No Organomegaly, Non Tender, No Pulsatile Mass, Normal Bowel Sounds, Soft Genitalia: Deferred Pelvic: Deferred Rectal: Deferred Extremities: No calf tenderness, Normal capillary refill, Normal inspection, Normal range of motion, Non-tender, No pedal edema Musculoskeletal : Apperance: Normal Neurologic: Alert, leather tooler II-XII nml as Tested, No Motor Deficits, Normal Affect, Normal Mood, No Sensory Deficits Cerebellar Function: Normal Reflexes: Normal Skin: Dry, Normal Color, Warm Lymphatic: No Adenopathy Was a procedure done? Was a procedure done?: No Differential Dx Differential Diagnosis: Asthma, Bronchitis, CHF, COPD, Pneumonia, Respiratory Distress X-Ray, Labs, Meds, VS Vital Signs Date Time Temp Pulse Resp B/P (MAP) Pulse Ox O2 Delivery O2 Flow Rate FiO2 06/15/24 01:00 19 96 Room Air* 0 21 06/15/24 00:40 98.7 110 22 154/103 (120) 100 06/15/24 00:40 22 100 Room Air* 0 21 Current Medications Medications (Trade) Dose Ordered Sig/Neda Route Start Time Stop Time Status Last Admin Albuterol (Ventolin Medneb) 5 mg ONCE ONCE HHN 06/15/24 00:45 06/15/24 00:46 DC 06/15/24 01:00 Ipratropium [place] (Atrovent Medneb) 1 mg ONCE ONCE N 06/15/24 00:45 06/15/24 00:46 DC 06/15/24 01:00 Time of 1ST Reevaluation: 00:34 Reevaluation 1ST: Unchanged Patient Education/Counseling: Diagnosis, Treatment Family Education/Counseling: No Family Present Departure 1 Departure Time of Disposition: 03:33 Impression: Primary Impression: Acute asthma Disposition: 01 HOME / SELF CARE / HOMELESS Condition: Stable e-Prescriptions Prednisone (Prednisone) 10 Mg Laz 10 MG PO QID for 5 Days, #20 PACK Prov: AMBROSIO TO MD 06/15/24 Albuterol Sulfate (Albuterol Sulfate Hfa) 108 Mcg/Act Aer 108 MCG IN Q4HP PRN for 10 Days, #1 AER 3 Refills Prov: AMBROSIO TO MD 06/15/24 Discharged With: Self Critical Care Note Critical Care Time?: Yes (35 min-critical care time only) Stability Stability form required: No Heart Score Heart Score: Heart Score Response (Comments) Value History N/A 0 EKG N/A 0 Age N/A 0 Risk Factors N/A 0 Troponin N/A 0 Total 0 I personally scribed for AMBROSIO TO MD ([email or web address]) on 06/15/24 at 00:40. Electronically submitted by Carlos Krause ([email or web address]). AMBROSIO TO MD Jun 15, 2024 00:40
[2024-06-15] MEDS: IPRATROPIUM BROM 0.5 MG/2.5ML INH SOL HHN ONE (01:00)
[2024-06-15] MEDS: ALBUTEROL SULF 2.5 MG/0.5ML(0.5%) NEB SOLN HHN ONE (01:00)
--- NOTE | 2024-06-15 01:16 | DVH ---
CHEST RADIOGRAPH Indication: SOB Technique: Single frontal view of the chest was obtained Comparison: XY CHEST PORTABLE on DOS: 06/05/24, XY CHEST PORTABLE on DOS: 05/13/24 FINDINGS: Lines and Tubes: None Lungs: No focal consolidation. Pleura: No effusion. No pneumothorax. Cardiomediastinal contours: Unremarkable Bones: No acute osseous abnormality. IMPRESSION: No acute cardiopulmonary disease.
[2024-06-15] MEDS ORDERED: ALBU108A5 IN (01:49)
[2024-06-15] MEDS ORDERED: PRED1PAK9 PO (01:50)
[2024-06-15] MEDS: predniSONE 20 MG TAB PO ONE (02:42)
[2024-06-15] MEDS: PENICILLIN G BENZ 1,200,000 UNITS/2 ML SYRG IM ONE (03:00)
[2024-06-15 04:00] VITALS: BP 146/86; PULSE 86; RESP 18; TEMP 98.6; O2SAT 96
== END 2024-06-15 04:07 | disposition home or self-care (01) ==
LOC: EDBD 00:24 → ER 00:24
DX: J45.998 Other asthma (principal); I10 Essential (primary) hypertension; Z90.710 Acquired absence of both cervix and uterus
CPT/HCPCS: 71045; 94640; 99283; J7512

== ENCOUNTER 2024-07-28 00:52 | Emergency (ER) | payer MEDICAID ==
[~2024-07-28] VITALS: Ht 160 cm; Wt 90.9 kg
[~2024-07-28 00:52] MED LIST changes: +ALBU108A5 IN; +PRED1PAK9 PO
--- NOTE | 2024-07-28 03:04 | ED.PDOC ---
GI ASSESSMENT HPI Comments 53-year-old female who came to ER due to abdominal pain. Patient is a morbidly obese woman with history of peptic ulcer disease and COPD. Few hours she has been experiencing burning epigastric abdominal pain, associated bouts of nausea and vomiting. Patient states she feels like her ulcer is flaring up again. Chief Complaint: Abdominal Pain Time Seen by MD: 03:03 Reviewed Notes: Nurses Notes Allergies: Coded Allergies: Diphenhydramine (Verified Allergy, Unknown, 05/14/24) Penicillins (Verified Allergy, Unknown, 05/13/24) Home Meds Active Scripts Prednisone (Prednisone) 10 Mg Laz, 10 MG PO QID for 5 Days, #20 PACK Prov:AMBROSIO TO MD 06/15/24 Albuterol Sulfate (Albuterol Sulfate Hfa) 108 Mcg/Act Aer, 108 MCG IN Q4HP PRN for 10 Days, #1 AER 3 Refills Prov:AMBROSIO TO MD 06/15/24 Cyclobenzaprine Hcl (Cyclobenzaprine Hcl) 10 Mg Tab, 10 MG PO QPM for 7 Days, #7 TAB Prov:CHAPO MCMAHAN MD 05/14/24 Ipratropium [place] Hfa (Atrovent Hfa) 17 Mcg Aer, 2 PUFF INH QID PRN, #12.9 GRAMS 0 Refills Prov:CHAPO MCMAHAN MD 05/14/24 Reported Medications Lisinopril (Lisinopril) 20 Mg Tab, 20 MG PO DAILY 05/13/24 Information Source: Patient Mode of Arrival: EMS Timing: Hours Duration: Since onset Prehospital treatment: None Quality: Burning Vomitus: Watery Stool: Normal Severity: Moderate Recent: None Recent Hx of: Ulcer Disease Pain Location: Epigastric Modifying Factors: Nothing Associated sign and symptoms: Nausea, Vomiting, Abdominal Pain Past Medical History PAST MEDICAL HISTORY: Asthma, COPD, HTN, PUD Past Medical History (Other): Morbid Obesity Surgical History: Hysterectomy SPECIAL PROCEDURES NURSE History: No Pertinent SPECIAL PROCEDURES NURSE History Family History Family History: Reviewed,noncontributory to illness Social History Smoker: Non-Smoker Alcohol: Denies ETOH Use Drugs: Denies Drug Use Lives In: Home Constitutional: denies: chills, diaphoresis, fatigue, fever, malaise, sweats, weakness, others EENTM: denies: blurred vision, double vision, ear bleeding, ear discharge, ear drainage, ear pain, ear ringing, eye pain, eye redness, hearing loss, mouth pain, mouth swelling, nasal discharge, nose bleeding, nose congestion, nose pain, photophobia, tearing, throat pain, throat swelling, voice changes, others Respiratory: denies: cough, hemoptysis, orthopnea, SOB at rest, shortness of breath, SOB with excertion, stridor, wheezing, others Cardiovascular: denies: chest pain, dizzy spells, diaphoresis, Dyspnea on exer tion, edema, irregular heart beat, left arm pain, lightheadedness, palpitations, PND, syncope, others Gastrointestinal: reports: abdominal pain, nausea, vomiting; denies: abdomen distended, blood streaked bowels, constipated, diarrhea, dysphagia, difficulty swallowing, hematemesis, melena, poor appetite, poor fluid intake, rectal bleeding, rectal pain, others Genitourinary: denies: abnormal vagina bleeding, burning, dyspareunia, dysuria, flank pain, frequency, hematuria, incontinence, pain, , vagina discharge, urgency, others Neurological: denies: dizziness, fainting, headache, left sided numbness, left sided weakness, numbness, paresthesia, pre-existing deficit, right sided numbness, right sided weakness, seizure, speech problems, tingling, tremors, weakness, others Musculoskeletal: denies: back pain, gout, joint pain, joint swelling, muscle pain, muscle stiffness, neck pain, others Integumetry: denies: bruises, change in color, change in hair/nails, dryness, laceration, lesions, lumps, rash, wounds, others Hematologic/Lymphatic: denies: anemia, blood clots, easy bleeding, easy bruising, swollen glands, others Endocrine: denies: excessive hunger, excessive sweating, excessive thirst, excessive urination, flushing, intolerance to cold, intolerance to heat, unexplained weight gain, unexplained weight loss, others Psychiatric: denies: anxiety, bipolar disorder, depression, hopeless, panic disorder, schizophrenia, sleepless, suicidal, others Physical Exam General Appearance: Moderate Distress, Normal HEENT: Normal ENT Inspection, Pharynx Normal, TMs Normal Neck: Full Range of Motion, Non-Tender, Normal, Normal Inspection Respiratory: Chest Non-Tender, Lungs Clear, No Accessory Muscle Use, No Respiratory Distress, Normal Breath Sounds Cardiovascular: No Edema, No JVD, No Murmur, No Gallop, Normal Peripheral Pulses, Regular Rate/Rhythm Breast Exam: Deferred Gastrointestinal: No Organomegaly, No Pulsatile Mass, Normal Bowel Sounds, Soft, Tenderness (mild) Genitalia: Deferred Pelvic: Deferred Rectal: Deferred Extremities: No calf tenderness, Normal capillary refill, Normal inspection, Normal range of motion, Non-tender, No pedal edema Musculoskeletal : Apperance: Normal Neurologic: Alert, melter supervisor oxygen furnace II-XII nml as Tested, No Motor Deficits, Normal Affect, Normal Mood, No Sensory Deficits Cerebellar Function: Normal Reflexes: Normal Skin: Dry, Normal Color, Warm Lymphatic: No Adenopathy Was a procedure done? Was a procedure done?: No GI differential Dx Differential Diagnosis: Diverticular disease, Gastritis/PUD, Gastroenteritis, Pancreatitis, UTI, Urolithiasis, Food Poisoning X-Ray, Labs, Meds, VS Vital Signs Date Time Temp Pulse Resp B/P (MAP) Pulse Ox O2 Delivery O2 Flow Rate FiO2 07/28/24 03:51 69 20 147/82 (103) 98 07/28/24 03:51 69 20 98 Room Air* 0 21 07/28/24 00:53 98.4 72 20 186/114 (138) 98 Lab Test 07/28/24 03:35 Range/Units White Blood Count 8.0 4.4-10.8 10^3/uL Red Blood Count 4.71 4.0-5.20 10^6/uL Hemoglobin 13.7 12.2-16.2 g/dL Hematocrit 41.5 36.0-46.0 % Mean Corpuscular Volume 88.1 80.0-100.0 fL Mean Corpuscular Hemoglobin 29.1 28.0-32.0 pg Mean Corpuscular Hemoglobin Concent 33.0 32.0-36.0 g/dL Red Cell Distribution Width 15.6 H 11.8-14.3 % Platelet Count 291 140-450 10^3/uL Mean Platelet Volume 7.5 6.9-10.8 fL Neutrophils (%) (Auto) 54.2 37.0-80.0 % Lymphocytes (%) (Auto) 34.8 10.0-50.0 % Monocytes (%) (Auto) 9.1 0.0-12.0 % Eosinophils (%) (Auto) 1.2 0.0-7.0 % Basophils (%) (Auto) 0.7 0.0-2.0 % Neutrophils # (Auto) 4.3 1.6-8.6 10 ^3/uL Lymphocytes # (Auto) 2.8 0.4-5.4 10 ^3/uL Monocytes # (Auto) 0.7 0-1.3 10 ^3/uL Eosinophils # (Auto) 0.1 0-0.8 10 ^3/uL Basophils # (Auto) 0.1 0-0.2 10 ^3/uL Nucleated Red Blood Cells 0.1 % Sodium Level 140 136-145 mmol/L Potassium Level 3.8 3.5-5.1 mmol/L Chloride Level 107 98-107 mmol/L Carbon Dioxide Level 26 20-31 mmol/L Anion Gap 7 5-15 Blood Urea Nitrogen 16 9-23 mg/dL Creatinine 0.79 0.550-1.02 mg/dL Glomerular Filtration Rate Calc 91 >90 mL/min BUN/Creatinine Ratio 20.3 H 10.0-20.0 Serum Glucose 96 74-106 mg/dL Lactic Acid Level 1.1 0.4-2.0 mmol/L Calcium Level 10.2 8.7-10.4 mg/dL Total Bilirubin 0.2 0.2-1.0 mg/dL Aspartate Amino Transferase (AST) 14 13-40 U/L Alanine Aminotransferase (ALT) 14 7-40 U/L Alkaline Phosphatase 117 H 46-116 U/L Total Protein 7.5 5.7-8.2 g/dL Albumin 4.4 3.2-4.8 g/dL Lipase Pending Plasma/Serum Blood Alcohol < 3.0 <10 mg/dL Current Medications Medications (Trade) Dose Ordered Sig/Neda Route Start Time Stop Time Status Last Admin Ondansetron HCl (Zofran) 4 mg ONCE ONCE IM 07/28/24 03:15 07/28/24 03:16 DC 07/28/24 03:39 Sucralfate (Carafate Susp) 1 gm ONCE ONCE PO 07/28/24 03:15 07/28/24 03:16 DC 07/28/24 03:39 DIAGNOSTIC IMAGING Diagnostic Imaging Report : [id number] Signed PATIENT: MELISSA CHRISTIANSON JACCT: [id number] UNIT: [id number] : 1970 LOC: ER ROOM / BED: / AGE / SEX: 53 / F ADM STATUS: REG ER SERVICE [id number] ORDERING PHYSICIAN: SHONNA MATA MD PROCEDURE(s): ABPL - CT AB PEL WO CON-NO ORAL OR IV REASON: epigastric pain ORDER NUMBER(s): [id number], ACCESSION NUMBER(s): [id number] Exam: CT CT AB PEL WO CON-NO ORAL OR IV History: epigastric pain Comparison Study: None available at time of dictation. TECHNIQUE: Multidetector CT of the abdomen was performed from lung bases to pubic symphysis. Imaging was performed without IV contrast. Axial, coronal and sagittal multiplanar reformats were obtained from the axial data set by the technologist. Radiation optimization: All CT scans at this facility use at least one of these dose optimization techniques: automated exposure control mA and/or kV adjustm ent per patient size (includes targeted exams where dose is matched to clinical indication) or iterative reconstruction. Radiation Dose Information: CT Dose: CTDI volume is 25.0 mGy. Dose-length product is 1442.5 mGy*cm FINDINGS: Evaluation of solid organs is limited due to lack of intravenous contrast use. Findings: Imaged portions of the lung bases appear unremarkable. There are calcified left hilar lymph nodes. Coronary artery calcifications. Small hiatal hernia. Liver, gallbladder, spleen, pancreas and adrenal glands appear unremarkable. Multiple 1-2 mm nonobstructing bilateral renal calculi. Scattered colonic diverticulosis. No evidence of focal bowel wall thickening or obstruction. No free fluid, free air, or adenopathy. There is ventral diastasis without discrete hernia. No suspicious osseous lesion. IMPRESSION: 1. No acute abdominal or pelvic finding. 2. Small hiatal hernia. Scattered colonic diverticulosis. Nonobstructing bilateral renal calculi. ATED BY: NIKITA FAYE MD DICTATED DATE/TIME: 07/28/24446 SIGNED BY: NIKITA FAYE MD SIGNED DATE/TIME: 07/28/24446 CC: CBC is normal. CMP is normal. Lipase is pending CT shows hiatal hernia diverticulosis and nonobstructing bilateral renal calculi. The patient was prescribed [place] and discharged to follow up with the primary care physician. Time of 1ST Reevaluation: 03:00 Reevaluation 1ST: Unchanged Patient Education/Counseling: Diagnosis, Treatment Family Education/Counseling: No Family Present Departure 1 Departure Time of Disposition: 05:10 Impression: Primary Impression: Renal stones Additional Impressions: Bilateral renal stones Diverticulosis Disposition: HOME / SELF CARE / HOMELESS Condition: Stable Additional Instructions: Reassessed patient, vital signs stable. Denies any new symptoms. Patient is able to tolerate PO and ambulate/be mobile at their baseline without concern. Risks and benefits of all medications given or prescribed, if any, discussed. All lab work, imaging and diagnostic studies were reviewed by me. The patient was cou nseled extensively on my clinical impression, diagnosis, expected course of the disease, and plan, including their follow-up care. Will discharge patient. Patient instructed to follow up with Primary Care Physician within 24-48 hours. Strict return precautions given for further exacerbation of symptoms or for new symptoms. The patient was given the opportunity to ask questions and all questions were answered by myself and the nursing/tech staff. Patient is in agreement with the care plan. The patient verbally expressed understanding of the discharge instructions, including the reasons to return to the Emergency Department. e-Prescriptions Hydrocodone-Acetaminophen (Hydrocodone Bitartrate/AC 5-325 mg) 1 Tab Tab 1 TAB PO QIDPRN, #20 TAB Prov: SHONNA MATA MD 07/28/24 Discharged With: Relative Critical Care Note Critical Care Time?: Yes (35 min-critical care time only) Stability Stability form required: No Heart Score Heart Score: Heart Score Response (Comments) Value History N/A 0 EKG N/A 0 Age N/A 0 Risk Factors N/A 0 Troponin N/A 0 Total 0 I personally scribed for SHONNA MATA MD ([email or web address]) on 07/28/24 at 03:04. Electronically submitted by Carlos Krause ([email or web address]). SHONNA MATA MD Jul 28, 2024 03:04
[2024-07-28] MEDS: SUCRALFATE 1 GM/10 ML ORAL SUSP PO ONE (03:39)
[2024-07-28] MEDS: ONDANSETRON HCL 4 MG/2 ML VIAL IM ONE (03:39)
[2024-07-28 03:51] VITALS: BP 147/82; PULSE 69; RESP 20; O2SAT 98
[2024-07-28 03:57] LABS: Basophils # (auto) 0.1 10 ^3/uL (0-0.2); Basophils % (auto) 0.7 % (0.0-2.0); Eosinophils # (auto) 0.1 10 ^3/uL (0-0.8); Eosinophils % (auto) 1.2 % (0.0-7.0); Hematocrit 41.5 % (36.0-46.0); Hemoglobin 13.7 g/dL (12.2-16.2); Lymphocytes # (auto) 2.8 10 ^3/uL (0.4-5.4); Lymphocytes % (auto) 34.8 % (10.0-50.0); Mean Corpuscular Hemoglobin 29.1 pg (28.0-32.0); Mean Corpuscular Volume 88.1 fL (80.0-100.0); Monocytes # (auto) 0.7 10 ^3/uL (0-1.3); Monocytes % (auto) 9.1 % (0.0-12.0); Neutrophils # (auto) 4.3 10 ^3/uL (1.6-8.6); Neutrophils % (auto) 54.2 % (37.0-80.0); Nucleated Red Blood Cells % 0.1 %; Platelet Count (auto) 291 10^3/uL (140-450); Red Blood Cells 4.71 10^6/uL (4.0-5.20); Red Cell Distribution Width 15.6 % (11.8-14.3)
[2024-07-28 04:46] LABS: Alanine Aminotransferase 14 U/L (7-40); Albumin 4.4 g/dL (3.2-4.8); Anion Gap 7 (5-15); Aspartate Aminotransferase 14 U/L (13-40); BUN/Creatinine Ratio 20.3 (10.0-20.0); Blood Urea Nitrogen 16 mg/dL (9-23); Calcium 10.2 mg/dL (8.7-10.4); Carbon Dioxide 26 mmol/L (20-31); Glucose 96 mg/dL (74-106); Potassium 3.8 mmol/L (3.5-5.1); Sodium 140 mmol/L (136-145); Total Protein 7.5 g/dL (5.7-8.2)
--- NOTE | 2024-07-28 04:48 | DVH ---
Exam: CT CT AB PEL WO CON-NO ORAL OR IV History: epigastric pain Comparison Study: None available at time of dictation. TECHNIQUE: Multidetector CT of the abdomen was performed from lung bases to pubic symphysis. Imaging was performed without IV contrast. Axial, coronal and sagittal multiplanar reformats were obtained fr om the axial data set by the technologist. Radiation optimization: All CT scans at this facility use at least one of these dose optimization teodora hniques: automated exposure control mA and/or kV adjustment per patient size (includes targeted exam s where dose is matched to clinical indication) or iterative reconstruction. Radiation Dose Information: CT Dose: CTDI volume is 25.0 mGy. Dose-length product is 1442.5 mGy*cm FINDINGS: Evaluation of solid organs is limited due to lack of intravenous contrast use. Findings: Imaged portions of the lung bases appear unremarkable. There are calcified left hilar lymph nodes. Coronary artery calcifications. Small hiatal hernia. Liver, gallbladder, spleen, pancreas and adrenal glands appear unremarkable. Multiple 1-2 mm nonobstr ucting bilateral renal calculi. Scattered colonic diverticulosis. No evidence of focal bowel wall thickening or obstruction. No free fluid, free air, or adenopathy. There is ventral diastasis without discrete hernia. No suspicious oss eous lesion. IMPRESSION: 1. No acute abdominal or pelvic finding. 2. Small hiatal hernia. Scattered colonic diverticulosis. Nonobstructing bilateral renal calculi.
[2024-07-28 04:50] LABS: Alkaline Phosphatase 117 U/L (46-116); Bilirubin, Total 0.2 mg/dL (0.2-1.0); Blood Alcohol < 3.0 mg/dL (<10); Chloride 107 mmol/L (98-107)
[2024-07-28] MEDS ORDERED: HYDR-4902 PO (05:12)
[2024-07-28 05:48] LABS: Lipase 49 U/L (12-53)
[2024-07-28] MEDS: HYDROcodone-ACET 5/325MG TAB PO ONE (05:48)
== END 2024-07-28 05:57 | disposition home or self-care (01) ==
LOC: ER 00:52 → EDBD 00:52 → ER 05:57
DX: K57.90 Diverticulosis of intestine, part unspecified, without perforation or abscess without bleeding (principal); N20.0 Calculus of kidney; J45.909 Unspecified asthma, uncomplicated; I10 Essential (primary) hypertension; Z88.0 Allergy status to penicillin; Z88.6 Allergy status to analgesic agent; Z79.899 Other long term (current) drug therapy; Z90.710 Acquired absence of both cervix and uterus
CPT/HCPCS: 36415; 74176; 80053; 80320; 83605; 83690; 85025; 96372; 99285; J2405